=== PATIENT | male | born 1975 | race Caucasian/White ===

== ENCOUNTER 2019-05-23 13:26 | Emergency (ER) | payer OTHER ==
[2019-05-23 13:46] VITALS: BMI 34.0
[2019-05-23] MEDS ORDERED: LIDOCAINE 5% TOPICAL PATCH TP ONE (14:11)
[2019-05-23] MEDS ORDERED: ACETAMINOPHEN 325 MG TABLET (FP) PO ONE (14:11)
[2019-05-23] MEDS ORDERED: METHOCARBAMOL 500 MG TABLET PO ONE (14:11)
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
[2019-05-23] MEDS ORDERED: LIDOCAINE 5% TOPICAL PATCH ONE (14:36)
[2019-05-23] MEDS ORDERED: METHOCARBAMOL 500 MG TABLET ONE (14:36)
[2019-05-23] MEDS ORDERED: ACETAMINOPHEN 325 MG TABLET (FP) ONE (14:36)
[2019-05-23] MEDS ORDERED: IBUPROFEN 600 MG TABLET (FP) PO ONE ×2 (16:10→17:10)
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
[2019-05-23 17:13] VITALS: BP 135/77; PULSE 81; TEMP 98.1
[2019-05-23] MEDS ORDERED: LIDOCAINE PATCH REMOVAL MC SCH (22:00)
== END 2019-05-23 17:13 | disposition home or self-care (01) ==
LOC: JER 13:26
DX: S63.502A Unspecified sprain of left wrist, initial encounter (principal); S70.12XA Contusion of left thigh, initial encounter; M54.6 Pain in thoracic spine; V92.03XA Drowning and submersion due to fall off other powered watercraft, initial encounter; Y93.19 Activity, other involving water and watercraft; Y92.838 Other recreation area as the place of occurrence of the external cause; Y99.8 Other external cause status
CPT/HCPCS: 71046-TC-FY; 73110-TC-LT-FY; 73130-TC-LT-FY; 73523-TC-FY; 73552-TC-LT-FY; 99283-25